=== PATIENT | male | born 1965 | race Caucasian/White ===

== ENCOUNTER 2016-03-16 08:12 | Emergency (ER) | payer BC ==
[2016-03-16 09:41] LABS: Hematocrit 50 % (42-52); Hemoglobin 16.3 g/dl (14.0-18.0); Mean Corpuscular HGB Conc 33 g/dl (31-36); Mean Corpuscular Hemoglobin 33 pg (27-31); Mean Corpuscular Volume 101 fL (80-94); Mean Platelet Volume 8 um3 (7.4-10.4); Red Blood Count 4.91 10^6/ul (4.0-5.4); Red Cell Distribution Width 14 % (10.5-15)
--- NOTE | 2016-03-16 09:49 | RAD ---
INDICATION: Shortness of breath. COMPARISON: There are no prior studies available for comparison. TECHNIQUE: Dual-energy PA and lateral views of the chest were obtained. FINDINGS: The heart is within normal limits in size. Mediastinal and hilar contours appear within normal limits. The lungs are clear. There is flattening of the diaphragms suggestive of chronic obstructive pulmonary disease. No pleural effusion is seen. IMPRESSION: FINDINGS SUGGESTIVE OF COPD, NO EVIDENCE FOR ACUTE FINDING.
[2016-03-16 09:52] LABS: Albumin 3.6 g/dL (3.2-5.2); BUN/Creatinine Ratio 21.8 (8-20); C Reactive Protein 6.35 mg/L (< 5.00); Calcium 8.5 mg/dL (8.6-10.3); EGFR Non-African American 104.9 (>60); Globulin 3.1 g/dL (2-4); Potassium 4.2 mmol/L (3.5-5.0); Total Bilirubin 0.6 mg/dL (0.2-1.0); Total Protein 6.7 g/dL (6.4-8.9)
[2016-03-16] MEDS ORDERED: Iohexol 350* (CONTRAST) 500 ML MDV IV ONE (10:37)
[2016-03-16 10:42] LABS: Magnesium 1.9 mg/dL (1.9-2.7)
[2016-03-16 10:47] LABS: Troponin I 0.01 ng/mL (<0.04)
--- NOTE | 2016-03-16 11:26 | RAD ---
Indication: Shortness of breath, pulmonary embolus. CTA of the chest was performed after IV contrast administration. Administered 88.0 ml of OMNIPAQUE 350 mgi/ml was given according to hospital protocol intravenously. Coronal and sagittal reconstructed images were obtained. The pulmonary arterial tree is suboptimally visualized. No evidence of filling defect is noted in the main, left and right pulmonary arteries. No mediastinal or hilar adenopathy is noted. The heart demonstrates no pericardial effusion. There is no evidence of aortic dissection. The trachea and major bronchi appear patent. Lung núñez demonstrate no evidence of alveolar consolidation. There is a small pulmonary nodule in the periphery of the right lower lobe measuring 5 mm. A prominent azygos vein is noted. IMPRESSION: No definite pulmonary embolus is noted in the main, left and right pulmonary artery. Pulmonary arteries lesions visualized. No evidence of aortic dissection is present.
[2016-03-16] MEDS ORDERED: Hydrochlorothiazide TAB* 25 MG PO ONE ×2 (15:00)
[2016-03-16] MEDS ORDERED: Lisinopril TAB* 10 MG PO ONE ×3 (15:00)
[2016-03-16 15:35] VITALS: BP 138/107
--- NOTE | 2016-03-16 15:46 | ED ---
Shortness of Breath - HPI Summary HPI Summary: Patient arrives to ED with Shortness of breath for the past seven days. He admits to not taking his lisinopril- hydrochlorothiazide blood pressure medication for the last three days as he has been on work in a different city. Denies shortness of breath, asthma, COPD history. He states he is also experiencing slight swelling in his legs 4 the past two days. He notes that he works around dust and this is likely the cause of his recent shortness of breath. Denies other significant health history. Patient is morbidly obese at 345 pounds. He notes that he was diagnosed with a URI approximately two months ago, last month was diagnosed with bacterial walking pneumonia although no x- ray was performed. Patient was placed on antibiotics with the last dose taken one week ago. Has been having increased sputum production. Patient states that he is feeling similar to what he has been feeling for the prior two months. Patient has a PCP at home. Denies sick contacts. Recent travel. Denies pain in his legs. Denies orthopnea. Able to lie flat at night with 1 pillow. - History of Current Complaint Chief Complaint: EDShortnessOfBreath Time Seen by Provider: 03/16/16 08:35 Hx Obtained From: Patient Onset/Duration: Gradual Onset Timing: Constant Current Severity: Mild Dyspnea At: Rest - intermittently - denies orthopnea Alleviating Factors: Oxygen - on arrival at hospital, sats improved Associated Signs & Symptoms: Cough (Productive), Diaphoresis, Edema - 1+ lower extremity Related History: Obesity, Similar Episode - Risk Factors Pulmonary Embolism: Recent Travel, Smoking - previous smoker Cardiac: Smoking, Hypertension Pseudomonas: Negative Tuberculosis: Smoking - Allergy/Home Medications Allergies/Adverse Reactions: Allergies Allergy/AdvReac Type Severity Reaction Status Date / Time Penicillin V Allergy See Comment Verified 03/16/16 08:23 [From [facility]] Home Medications: Home Medications Lisinopril/HCTZ 12/02.5(NF) [Zestoretic 12/02.5(NF)] 1 tab PO DAILY 03/16/16 [ History Confirmed 03/16/16] Naproxen TAB* [Naprosyn TAB*] 1 tab PO DAILY 03/16/16 [History Confirmed ] PMH/Surg Hx/FS Hx/Imm Hx Previously Healthy: Yes - morbidly obese with HTN, otherwise no significant PMHx Cardiovascular History: Reports: Hx Hypertension Infectious Disease History: No Infectious Disease History: Denies: Traveled Outside the [place] in Last 30 Days - Social History Occupation: Employed Full-time Lives: With Family Alcohol Use: Occasionally Alcohol Amount: 1-2 week 4 or 5 beers at a time Hx Substance Use: No Substance Use Type: Reports: None Smoking Status (MU): Former Smoker Review of Systems Positive: Fatigue Eyes: Negative Cardiovascular: Negative Positive: Shortness Of Breath, Cough - with sputum production Gastrointestinal: Negative Genitourinary: Negative Positive: Edema - bilateral ankles to midcalf Skin: Negative Neurological: Negative All Other Systems Reviewed And Are Negative: Yes Physical Exam Triage Information Reviewed: Yes Vital Signs On Initial Exam: Initial Vitals Temp Pulse Resp BP Pulse Ox 97.7 F 88 20 185/120 90 03/16/16 08:13 03/16/16 08:13 03/16/16 08:13 03/16/16 08:13 03/16/16 08:13 Vital Signs Reviewed: Yes Appearance: Positive: Well-Appearing, Well-Nourished Skin: Positive: Warm, Skin Color Reflects Adequate Perfusion, Soft Head/Face: Positive: Normal Head/Face Inspection Eyes: Positive: Normal, EOMI, TUYET, Conjunctiva Clear Neck: Positive: Supple, No Lymphadenopathy Respiratory/Lung Sounds: Positive: Clear to Auscultation, Decreased Breath Sounds Cardiovascular: Positive: Normal, Leg Edema Left, Leg Edema Right Abdomen Description: Positive: Nontender Musculoskeletal: Positive: Normal, Strength/ROM Intact Neurological: Positive: Normal, Sensory/Motor Intact Psychiatric: Positive: Normal - Ro Coma Scale Coma Scale Total: 15 Diagnostics - Vital Signs Vital Signs Temp Pulse Resp BP Pulse Ox 03/16/16 15:33 98.0 F 82 18 138/107 03/16/16 15:30 81 18 92 03/16/16 15:13 77 14 146/107 94 03/16/16 15:00 74 18 91 03/16/16 14:30 87 14 95 03/16/16 14:00 85 25 94 03/16/16 13:30 73 23 89 03/16/16 13:00 71 19 91 03/16/16 12:42 81 91 03/16/16 12:29 58 90 03/16/16 11:08 65 92 03/16/16 10:30 87 19 96 03/16/16 10:00 71 23 95 03/16/16 09:29 84 15 94 03/16/16 09:28 91 03/16/16 09:00 81 19 152/100 94 03/16/16 08:32 87 10 163/106 88 03/16/16 08:28 98.2 F 85 16 163/103 89 03/16/16 08:13 97.7 F 88 20 185/120 90 - Laboratory Lab Results: Lab Results 03/16/16 03/16/16 03/16/16 Range/Units 08:50 08:50 08:50 WBC 5.0 (3.5-10.8) 10^3/ul RBC 4.91 (4.0-5.4) 10^6/ul Hgb 16.3 (14.0-18.0) g/dl Hct 50 (42-52) % MCV 101 H (80-94) fL MCH 33 H (27-31) pg MCHC 33 (31-36) g/dl RDW 14 (10.5-15) % Plt Count 178 (150-450) 10^3/ul MPV 8 (7.4-10.4) um3 Neut % (Auto) 74.3 (38-83) % Lymph % (Auto) 12.9 L (25-47) % [place] % (Auto) 8.1 (1-9) % Eos % (Auto) 4.0 (0-6) % Baso % (Auto) 0.7 (0-2) % Absolute Neuts (auto) 3.7 (1.5-7.7) 10^3/ul Absolute Lymphs (auto) 0.6 L (1.0-4.8) 10^3/ul Absolute Monos (auto) 0.4 (0-0.8) 10^3/ul Absolute Eos (auto) 0.2 (0-0.6) 10^3/ul Absolute Basos (auto) 0 (0-0.2) 10^3/ul Absolute Nucleated RBC 0 10^3/ul Nucleated RBC % 0.1 INR (Anticoag Therapy) (0.89-1.11) APTT (26.0-36.3) seconds Sodium 138 (133-145) mmol/L Potassium 4.2 (3.5-5.0) mmol/L Chloride 99 L (101-111) mmol/L Carbon Dioxide 37 H (22-32) mmol/L Anion Gap 2 (2-11) mmol/L BUN 17 (6-24) mg/dL Creatinine 0.78 (0.67-1.17) mg/dL Est GFR ( Amer) 135.0 (>60) Est GFR (Non-Af Amer) 104.9 (>60) BUN/Creatinine Ratio 21.8 H (8-20) Glucose 96 (70-100) mg/dL Lactic Acid (0.5-2.0) mmol/L Calcium 8.5 L (8.6-10.3) mg/dL Magnesium 1.9 (1.9-2.7) mg/dL Total Bilirubin 0.60 (0.2-1.0) mg/dL AST 17 (13-39) U/L ALT 19 (7-52) U/L Alkaline Phosphatase 56 (34-104) U/L Total Creatine Kinase 109 (10-223) U/L Myoglobin 30.2 (17.4-105.7) ng/mL Troponin I 0.01 (<0.04) ng/mL C-Reactive Protein 6.35 H (< 5.00) mg/L B-Natriuretic Peptide 90 ( - 100) pg/mL Total Protein 6.7 (6.4-8.9) g/dL Albumin 3.6 (3.2-5.2) g/dL Globulin 3.1 (2-4) g/dL Albumin/Globulin Ratio 1.2 (1-3) 03/16/16 03/16/16 03/16/16 Range/Units 08:50 12:38 14:31 WBC (3.5-10.8) 10^3/ul RBC (4.0-5.4) 10^6/ul Hgb (14.0-18.0) g/dl Hct (42-52) % MCV (80-94) fL MCH (27-31) pg MCHC (31-36) g/dl RDW (10.5-15) % Plt Count (150-450) 10^3/ul MPV (7.4-10.4) um3 Neut % (Auto) (38-83) % Lymph % (Auto) (25-47) % [place] % (Auto) (1-9) % Eos % (Auto) (0-6) % Baso % (Auto) (0-2) % Absolute Neuts (auto) (1.5-7.7) 10^3/ul Absolute Lymphs (auto) (1.0-4.8) 10^3/ul Absolute Monos (auto) (0-0.8) 10^3/ul Absolute Eos (auto) (0-0.6) 10^3/ul Absolute Basos (auto) (0-0.2) 10^3/ul Absolute Nucleated RBC 10^3/ul Nucleated RBC % INR (Anticoag Therapy) 0.98 (0.89-1.11) APTT 33.1 (26.0-36.3) seconds Sodium (133-145) mmol/L Potassium (3.5-5.0) mmol/L Chloride (101-111) mmol/L Carbon Dioxide (22-32) mmol/L Anion Gap (2-11) mmol/L BUN (6-24) mg/dL Creatinine (0.67-1.17) mg/dL Est GFR ( Amer) (>60) Est GFR (Non-Af Amer) (>60) BUN/Creatinine Ratio (8-20) Glucose (70-100) mg/dL Lactic Acid 0.4 L (0.5-2.0) mmol/L Calcium (8.6-10.3) mg/dL Magnesium (1.9-2.7) mg/dL Total Bilirubin (0.2-1.0) mg/dL AST (13-39) U/L ALT (7-52) U/L Alkaline Phosphatase (34-104) U/L Total Creatine Kinase (10-223) U/L Myoglobin (17.4-105.7) ng/mL Troponin I 0.01 (<0.04) ng/mL C-Reactive Protein (< 5.00) mg/L B-Natriuretic Peptide ( - 100) pg/mL Total Protein (6.4-8.9) g/dL Albumin (3.2-5.2) g/dL Globulin (2-4) g/dL Albumin/Globulin Ratio (1-3) Result Diagrams: 03/16/16 08:50 03/16/16 08:50 Lab Statement: Any lab studies that have been ordered have been reviewed, and results considered in the medical decision making process. - Radiology No standard instances Xray Interpretation: Positive (See Comments) - COPD d/t hyperinflation of lungs Radiology Interpretation Completed By: Radiologist - CT No standard instances CT Interpretation: No Acute Changes - no evidence of PE CT Interpretation Completed By: Radiologist Re-Evaluation - Re-Evaluation First Eval Change: Improved - patient improved on 2L O2 Course/Dx - Course Course Of Treatment: Patient was at 89 02 sat upon arrival. 2 liters oxygen placed via nasal cannula. Patient improved to 95-97 02 set. He states he feels that he has his baseline. Due to cardiac risk factors of obesity, recent travel , leg swelling and 2 month history of shortness of breath without a clear diagnosis, CTA was ordered and interpreted as no acute findings for evidence of PE. On chest x-ray he is noted to have COPD d/t hyperinflation. Patient made aware. Trops negative. Will discharge home with bronchodilator, ipratropium, and a short course of steroid taper. Patient given his HTN medication (2), for today and tomorrow-- Lisinopril/HCTZ 12/02.5. Patient encouraged to follow up with PCP and managed care analyst upon arrival back home. Return precautions given. - Diagnoses Differential Diagnosis/HQI/PQRI: Positive: Asthma, Bronchitis, COPD Exacerbation Provider Diagnoses: Shortness of breath Discharge - Discharge Plan Condition: Stable Disposition: HOME Prescriptions: Albuterol HFA INHALER* [Ventolin HFA Inhaler*] 1 puff INH Q4H PRN #1 mdi PRN Reason: Shortness Of Breath Ipratropium HFA INHALER* [Atrovent Hfa Inhaler*] 1 puff INH Q6H PRN #1 mdi PRN Reason: Shortness Of Breath predniSONE TAB* [Deltasone TAB*] 20 mg PO DAILY #14 tab Patient Education Materials: COPD (Chronic Obstructive Pulmonary Disease) (ED) Additional Instructions: Albuterol should be used as a rescue inhaler. If you are feeling shortness of breath, 1 puff up to every 4 hours can be used. Ipratroprium can be used once up to every 4-6 hours as needed for shortness of breath not controlled with rescue inhaler. If you develop worsening sputum production, fever, shortness of breath not controlled on outpatient medications or worsening cough, please return to ED.
== END 2016-03-16 15:33 | disposition home or self-care (01) ==
LOC: ED 08:12
DX: R06.02 Shortness of breath (principal); R05 Cough; R61 Generalized hyperhidrosis; R60.9 Edema, unspecified; Z88.0 Allergy status to penicillin; Z87.891 Personal history of nicotine dependence
CPT/HCPCS: 36415; 71020; 71275; 80053; 82550; 83605; 83735; 83874; 83880; 84484; 85025; 85610; 85730; 86140; 87070; 87205; 93005; 99284; A9270-GY; Q9967